=== PATIENT | female | born 1950 | race Caucasian/White ===

== ENCOUNTER 2017-06-06 06:39 | Inpatient (IN) | payer MEDICARE, BC ==
[~2017-06-06 06:39] MED LIST: CEFAZOLIN 2 GM/50 ML (PMX) 50 ML IVPB
[2017-06-06] MEDS ORDERED: THROMBIN 5000 UNIT VIAL (07:12)
[2017-06-06] MEDS ORDERED: CA CHLORIDE 10% 10 ML SYRINGE (07:13)
[2017-06-06] MEDS: BUPIVACAINE 0.5%/EPI (SDV) 30 ML INJ INJ ×2 (07:30→09:17)
[2017-06-06] MEDS: DEXAMETHASONE 1 MG TAB PO (07:34)
[2017-06-06] MEDS: GABAPENTIN 300 MG CAP PO ×2 (07:34→21:29)
[2017-06-06] MEDS: traMADol 50 MG TAB PO (07:36)
[2017-06-06] MEDS ORDERED: MIDAZOLAM 1 MG/ML 2 ML INJ (08:08)
[2017-06-06] MEDS ORDERED: ONDANSETRON 4 MG INJ (08:08)
[2017-06-06] MEDS ORDERED: METOCLOPRAMIDE 10 MG INJ (08:08)
[2017-06-06] MEDS ORDERED: FENTAnyl 50 MCG/ML VIAL (08:08)
[2017-06-06] MEDS ORDERED: PROPOFOL 20 ML (08:08)
[2017-06-06] MEDS ORDERED: ROPIVACAINE 0.2% 20 ML VIAL (08:08)
[2017-06-06] MEDS ORDERED: ACETAMINOPHEN 1000MG/100ML IV 100 ML (08:29)
[2017-06-06] MEDS ORDERED: CEFAZOLIN 1 GM INJ (08:32)
[2017-06-06] MEDS: TRANEXAMIC ACID 1,000 MG in DEXTROSE 5% 100 ML IVPB (08:37)
[2017-06-06] MEDS: BUPIVACAINE 0.5% (SDV) 30 ML, morphine SULFATE (PF) 8 MG, EPINEPHrine 0.3 MG, KETOROLAC... IRR (09:16)
[2017-06-06] MEDS: TOBRAMYCIN 1.2 GM POWDER (09:17)
[2017-06-06] MEDS: POLYMYXIN/BACITRACIN 1L IRRIG (09:17)
[2017-06-06] MEDS ORDERED: ZOLPIDEM 5 MG TAB PO (10:30)
[2017-06-06] MEDS ORDERED: ONDANSETRON 4 MG INJ IV ×2 (10:30)
[2017-06-06] MEDS ORDERED: morphine 2 MG INJ IV (10:30)
[2017-06-06] MEDS ORDERED: MEPERIDINE 25 MG INJ IV (10:30)
[2017-06-06] MEDS ORDERED: HYDROmorphONE (0.2 MG/ML) 10ML SYG IV ×3 (10:30)
[2017-06-06] MEDS ORDERED: DIPHENHYDRAMINE 50 MG INJ IV ×2 (10:30)
[2017-06-06] MEDS ORDERED: clonAZEPAM 0.5 MG TAB PO (10:30)
[2017-06-06] MEDS ORDERED: ACETAMINOPHEN 500 MG TAB PO (10:30)
[2017-06-06] MEDS ORDERED: OXYCODONE/ACETAMINOPHEN (5/325) TAB PO (10:30)
[2017-06-06] MEDS: TRANEXAMIC ACID 1,000 MG in DEXTROSE 5% 100 ML IV (11:01)
[2017-06-06] MEDS ORDERED: CEFAZOLIN 1 GM/50 ML (PMX) 50 ML IVPB (11:07)
[2017-06-06] MEDS: CEFAZOLIN 1 GM/50 ML (PMX) 50 ML IVPB ×2 (11:19→18:44)
[2017-06-06] MEDS ORDERED: EPHEDrine SULFATE 50 MG/5 ML SYG (12:07)
[2017-06-06] MEDS: DEXAMETHASONE 2 MG TAB PO ×2 (14:11→18:44)
[2017-06-06] MEDS ORDERED: SUMATRIPTAN 50 MG TAB PO (16:30)
[2017-06-06] MEDS: OXYCODONE/ACETAMINOPHEN (5/325) TAB PO ×2 (18:48→22:58)
[2017-06-06] MEDS: SENNA/DOCUSATE NA (8.6MG/50MG) TAB PO (21:29)
[2017-06-06] MEDS: KETOROLAC 15 MG INJ IV (21:29)
[2017-06-07] MEDS: DEXAMETHASONE 2 MG TAB PO ×2 (00:13→06:54)
[2017-06-07] MEDS: morphine 2 MG INJ IV (02:51)
[2017-06-07] MEDS: CEFAZOLIN 1 GM/50 ML (PMX) 50 ML IVPB (02:52)
[2017-06-07] MEDS: OXYCODONE/ACETAMINOPHEN (5/325) TAB PO ×2 (06:54→10:41)
[2017-06-07] MEDS: LEVOTHYROXINE 50 MCG TAB PO (07:01)
[2017-06-07] MEDS: SENNA/DOCUSATE NA (8.6MG/50MG) TAB PO (08:50)
[2017-06-07] MEDS: ASPIRIN 81 MG TAB PO (08:50)
[2017-06-07] MEDS: SERTRALINE 100 MG TAB PO (08:50)
[2017-06-07] MEDS: MAGNESIUM HYDROXIDE 30ML CUP PO (09:36)
== END 2017-06-07 12:16 | disposition home or self-care (01) | DRG 483 ==
LOC: REC 06:39 → MS1 11:33
PROC: 0RRJ0JZ Replacement of Right Shoulder Joint with Synthetic Substitute, Open Approach (ICD-10-PCS; principal; 2017-06-06 08:30)
PROC: 0RPJ0JZ Removal of Synthetic Substitute from Right Shoulder Joint, Open Approach (ICD-10-PCS; 2017-06-06 08:30)
DX: T84.9XXA Unspecified complication of internal orthopedic prosthetic device, implant and graft, initial encounter (principal); M32.9 Systemic lupus erythematosus, unspecified; F31.81 Bipolar II disorder; E03.9 Hypothyroidism, unspecified; M24.011 Loose body in right shoulder
CPT/HCPCS: 73030; 86999; 88304; 88311; 97165